=== PATIENT | female | born 2000 | race African-American/Black ===

== ENCOUNTER 2019-10-11 03:20 | Emergency (ER) | payer MEDICAID ==
[~2019-10-11] VITALS: Ht 172.7 cm; Wt 72.6 kg
[2019-10-11 03:42] VITALS: BP_SYST 123
--- NOTE | 2019-10-11 03:45 | NUR ---
Patient triaged and placed in waiting room. VS checked with increased heart rate. Patient appears in no acute distress at this time. Accompanied by mother, awaiting available bed, and MD notified of need for MSE. Provided with urine cup for urine sample collection.
[2019-10-11] MEDS ORDERED: LEVE500T9 PO (03:49)
--- NOTE | 2019-10-11 04:43 | NUR ---
Pt wheeled to bed 7 for evaluation
[2019-10-11 05:04] LABS: BILIRUBIN,URINE NEGATIVE (NEGATIVE); BLOOD, URINE 3+ (NEGATIVE); CLARITY/URINE CLOUDY (CLEAR); COLOR,URINE RED (YELLOW); GLUCOSE,URINE NEGATIVE (NEGATIVE); KETONES,URINE TRACE (NEGATIVE); LEUKOCYTE ESTERASE ,URINE 2+ (NEGATIVE); NITRITE, URINE POSITIVE (NEGATIVE); PH,URINE 6.5 (5.0-8.0); PROTEIN URINE 3+ (NEGATIVE)
[2019-10-11 05:09] LABS: BACTERIA,URINE MANY /HPF (None Seen); RBC,URINE >100 /HPF (0-3); WBC,URINE >100 /HPF (0-3)
--- NOTE | 2019-10-11 05:29 | NUR ---
Dr. Olsen bedside for Pt eval
--- NOTE | 2019-10-11 05:30 | NUR ---
Pt BIB family to ED C/O diffuse abdominal pain No other complaints and or injuries noted VSS no s/s of acute distress Resting on gurney rails up
[2019-10-11] MEDS ORDERED: MORPHINE 4 MG/ML INJ. SYRINGE IM ONE (05:45)
[2019-10-11 05:46] LABS: MONOCYTES # (AUTO) 0.6 K/uL (0.0-1.0); NEUTROPHILS # (AUTO) 2.5 K/uL (1.8-7.7)
--- NOTE | 2019-10-11 05:50 | NUR ---
Pt taken to Radiology in stable condition
[2019-10-11 05:54] LABS: CALCIUM 8.5 mg/dL (8.4-11.0); CREATININE 0.77 mg/dL (0.55-1.30); POTASSIUM 3.6 mmol/L (3.5-5.1)
[2019-10-11 05:58] LABS: BASOPHILS % (AUTO) 0.5 % (0.0-2.0); EOSINOPHILS # (AUTO) 0.1 K/uL (0.0-0.4); EOSINOPHILS % (AUTO) 2.7 % (0.0-4.0); HEMATOCRIT 27.7 % (36-48); HEMOGLOBIN 9.2 g/dL (12.0-16.0); LYMPHOCYTES # (AUTO) 1.9 K/uL (1.0-5.5); LYMPHOCYTES % (AUTO) 37.2 % (20.5-51.5); MEAN CORPUSCULAR HEMOGLOBIN 31 pg (27-31); MEAN CORPUSCULAR HGB CONC 33 % (32-36); MEAN CORPUSCULAR VOLUME 92 fL (79.0-98.0); MONOCYTES % (AUTO) 11.1 % (1.7-9.3); NEUTROPHILS % (AUTO) 48.5 % (40.0-70.0); PLATELET COUNT (AUTO) 117 K/uL (130-430); RED BLOOD CELL COUNT(AUTO) 3.01 MIL/uL (4.2-6.2); RED CELL DISTRIBUTION WIDTH 13.2 % (9.0-15.0); WHITE BLOOD COUNT (AUTO) 5.1 K/uL (4.5-11.0)
--- NOTE | 2019-10-11 06:03 | NUR ---
Pt back from Radiology, well tolerated
[2019-10-11 06:05] LABS: TOTAL BILIRUBIN 0.3 mg/dL (0.0-1.0)
[2019-10-11] MEDS ORDERED: NITROFURANTOIN MONOHYD/M-CRYST 100 MG CAPSULE PO ONE ×2 (07:00→07:13)
--- NOTE | 2019-10-11 07:16 | NUR ---
Patient given written and verbal discharge instructions and verbalizes understanding. ER MD discussed with patient the results and treatment provided. Patient in stable condition. ID arm band removed. Rx of Tylenol #3 and Macrobid given. Patient educated on pain management and to follow up with PMD. Pain Scale 0/10. Opportunity for questions provided and answered. Medication side effect fact sheet provided.
[2019-10-11 07:26] VITALS: BP_SYST 122
== END 2019-10-11 07:49 | disposition home or self-care (01) ==
LOC: SED 03:20
DX: N39.0 Urinary tract infection, site not specified (principal); R10.84 Generalized abdominal pain
CPT/HCPCS: 36415; 76856; 80053; 81000; 83690; 84702; 85025; 87086; 96372; 99284; J2270

== ENCOUNTER 2022-05-22 17:25 | Emergency (ER) | payer MEDICAID ==
[~2022-05-22] VITALS: Ht 172.7 cm; Wt 70.8 kg
[~2022-05-22 17:25] MED LIST: LEVE500T9 PO
[2022-05-22 17:59] VITALS: BP_SYST 136
--- NOTE | 2022-05-22 20:41 | NUR ---
UNABLE TO LOCATE IN WR
--- NOTE | 2022-05-22 20:41 | NUR ---
Patient left without being seen. No further treatment provided. ER MD aware
== END 2022-05-22 20:11 | disposition left against medical advice (07) ==
LOC: SED 17:25
DX: N76.4 Abscess of vulva (principal); Z53.21 Procedure and treatment not carried out due to patient leaving prior to being seen by health care provider